=== PATIENT | male | born 1960 | race Caucasian/White ===

== ENCOUNTER → 2019-02-18 | Outpatient (CLI) | payer BC ==
[~2019-02-18] MED LIST: AMLODIPINE BESYL5 MG; CYMBALTA30 MG PO; ECOTRIN81 MG; GABAPENTIN100 MG PO; LEVAQUIN500 MG PO; LEVOTHYROXINE25 MCG; LEVOXYL88 MCG PO; LISINOPRIL5 MG PO; LORAZEPAM1 MG PO; XANAX0.5 MG
--- NOTE | 2019-02-24 17:36 | Polysomnography ---
DATE OF STUDY: 02/18/2019 REFERRING PHYSICIAN: Harshal Clark MD INTERPRETING PHYSICIAN: Ugo Kline MD. STUDY: CPAP TITRATION POLYSOMNOGRAPHY IMPRESSION: 1. Significant response to CPAP at 15 cm of water pressure, which resulted in improvement of obstructive sleep apnea. 2. Snoring improved with ending pressure. 3. Limb movements were observed. RECOMMENDATIONS: 1. CPAP pressure at 15 cm of water pressure with heated humidifier. 2. Avoid consumption of alcohol or sedatives before bedtime. 3. Weight reduction to ideal body weight. 4. Advise the patient that excessive daytime sleepiness could pose a danger to the patient and others while driving or operating heavy machinery, and to use caution until symptoms are treated and improved. 5. The patient to follow up with physician to discuss results of the study. Ugo Kline MD JKY/MODL /[id number] MTDD
== END ==
LOC: SLEEP 20:45
PROVIDERS: ATTEND Internal Medicine
DX: G47.33 Obstructive sleep apnea (adult) (pediatric) (principal)
CPT/HCPCS: 95811